=== PATIENT | male | born 1975 | race Caucasian/White ===

== ENCOUNTER 2021-02-21 19:49 | Emergency (ER) | payer BC, SELFPAY ==
[2021-02-21 20:28] VITALS: BP 141/66; PULSE 70; RESP 18; TEMP 36.9; O2SAT 98; BMI 25.1
[2021-02-21 21:43] VITALS: BP 142/78; PULSE 73; RESP 18; TEMP 36.7; O2SAT 98
== END 2021-02-21 21:43 | disposition left against medical advice (07) ==
PROVIDERS: Emergency Provider Emergency Medicine
DX: Z53.21 Procedure and treatment not carried out due to patient leaving prior to being seen by health care provider (principal)
CPT/HCPCS: 99211